=== PATIENT | male | born 1945 | race Caucasian/White ===

== ENCOUNTER 2017-05-10 15:25 | Emergency (ER) | payer MEDICARE, BC ==
[2017-05-10 16:14] LABS: Bilirubin Negative (Negative); Blood, Urine Large (Negative); Glucose, Urine (Dipstick) Negative (Negative); Ketone, Urine Negative (Negative); Nitrite Negative (Negative); Protein, Urine (Dipstick) Negative (Neg-Trace); Urobilinogen 0.2 mg/dL (0.2-1.0)
[2017-05-10 16:17] LABS: Bacteria/HPF None Seen HPF (None Seen); Hyaline Casts/LPF 4-6 HYALINE CAST LPF (0-3 Hyaline); RBC/HPF 21-50 HPF (0-3); Squamous Epithelial 0-3 HPF (0-3)
[2017-05-10 16:30] LABS: Yeast-All Forms None Seen HPF (None Seen)
[2017-05-10 16:39] LABS: #Lymphocytes 1.4 thou/uL (1.20-3.40); #Monocytes 0.5 thou/uL (0.11-0.59); #Neutrophils 7.5 thou/uL (1.40-6.50); %Basophils 0.2 % (0.0-1.0); %Eosinophils 0.4 % (0.0-10.0); %Lymphocytes 14.3 % (21.0-51.0); %Monocytes 5.7 % (0.0-10.0); Hematocrit 44.1 % (42.0-52.0); Mean Platelet Volume 8.2 fL (7.4-10.4); Red Blood Cell (RBC) Count 4.53 mill/uL (4.70-6.10); White Blood Cell (WBC) Count 9.4 thou/uL (4.8-10.8)
[2017-05-10 16:50] LABS: ALT (SGPT) 60 U/L (8-55); AST (SGOT) 52 U/L (5-34); Alkaline Phosphatase 56 U/L (40-150); Anion Gap 12 mmol/L (10-20); BUN (Urea Nitrogen) 17 mg/dL (8.4-25.7); Bilirubin, Total 1.2 mg/dL (0.2-1.2); Calc. Creatinine Clearance 0 mL/min (70-130); Calcium 10.1 mg/dL (7.8-10.44); Carbon Dioxide 28 mmol/L (23-31); Chloride 100 mmol/L (98-107); Estimated GFR-MDRD 75; Globulin 3.6 g/dL (2.4-3.5); Protein, Total 8.3 g/dL (5.8-8.1)
--- NOTE | 2017-05-10 19:19 | CT ---
ABDOMEN AND PELVIS CT NONCONTRAST: History: Left flank pain. Comparison: None. FINDINGS: There is mild volume loss at the imaged lung bases. There are punctate nonobstructing right renal steve culi. There is a mild to moderately obstructing left mid ureteral calculus measuring 4 mm in diameter . A mild degree of surrounding left periureteral fat stranding is present. There are scattered coloni c diverticula. Low attenuation of the hepatic parenchyma indicates hepatic steatosis. There is modera te distention of the gallbladder. There is a punctate calcification within the perihepatic fat of the anterior right abdomen. Mild nonspecific central mesenteric fat stranding is present with interspers ed lymph nodes which are not pathologically enlarged. These findings are nonspecific. There is modera te distention of the unopacified urinary bladder. Mild prominence of the prostate gland which contain s calcifications. No free air. Diffuse vascular disease is present. Regional skeletal structures demo nstrate degenerative change. There is focal ectasia involving portions of the abdominal aorta. IMPRESSION: 1. Mild to moderate obstruction of the left urinary collection system as a result of a 4 mm mid left ureteral calculus. 2. Nonobstructing multifocal right nephrolithiasis. 3. Prostate enlargement with prostate calcification. Correlate clinically. POS: [facility]
== END 2017-05-10 19:54 | disposition home or self-care (01) ==
LOC: ERS 15:25
DX: N20.2 Calculus of kidney with calculus of ureter (principal); E78.5 Hyperlipidemia, unspecified; Z79.82 Long term (current) use of aspirin; Z79.899 Other long term (current) drug therapy
CPT/HCPCS: 36415; 74176; 80053; 81003; 81015; 85025; 87086

== ENCOUNTER 2017-05-23 11:36 | Outpatient (CLI) | payer MEDICARE, BC ==
--- NOTE | 2017-05-23 12:42 | RAD ---
KUB: Comparison: CT abdomen/pelvis 05-10-17. History: Nephrolithiasis. FINDINGS: Single view of the abdomen shows a nonspecific, nonobstructed bowel gas pattern. There are calcificat ions projecting over the right renal shadow which likely represent kidney stones. No calcifications a re seen in the left renal shadow or along the course of the ureters. Vascular calcifications are seen . IMPRESSION: Right nephrolithiasis. POS: [facility]
== END 2017-05-23 11:37 | disposition home or self-care (01) ==
LOC: RAD 11:36
PROVIDERS: ATTEND Urology
DX: N20.0 Calculus of kidney (principal)
CPT/HCPCS: 74000

== ENCOUNTER 2017-06-19 11:58 | Outpatient (CLI) | payer MEDICARE, BC ==
--- NOTE | 2017-06-19 13:25 | RAD ---
KUB: Date: 06-19-17 Comparison: 05-23-17 History: Nephrolithiasis. FINDINGS: Numerous calcifications are seen in the right upper quadrant, stable, suggesting numerous right renal stones. These calcifications measure up to 1.1 cm. No calcifications are seen in the left upper quad rant. There are numerous calcifications within the pelvis suggesting phleboliths. It is impossible to exclu de distal ureteral stone on the basis of this exam. As clinically warranted, CT examination is advise d. IMPRESSION: Multiple prominent right renal stones. Numerous pelvic calcifications, likely representing phlebolith s. If there is clinical concern for obstructive uropathy, CT advised. POS: [facility]
== END 2017-06-19 11:59 | disposition home or self-care (01) ==
LOC: RAD 11:58
PROVIDERS: ATTEND Urology
DX: N20.0 Calculus of kidney (principal)
CPT/HCPCS: 74018

== ENCOUNTER 2017-06-28 12:27 | Outpatient (CLI) | payer MEDICARE, BC ==
--- NOTE | 2017-06-28 13:22 | ULT ---
RENAL ULTRASOUND: INDICATION: Urolithiasis. FINDINGS: The demonstrated right renal length is slightly greater than 10 cm and left renal length is slightly greater than 12 cm. There is no hydronephrosis identified, bilaterally. There is a focus of increas ed echogenicity without significant shadowing at the mid right kidney. This could either relate to c alculus or renal sinus fat. The urinary bladder is mildly distended with slight wall prominence. Th ere is an enlarged lobular prostate which impresses upon the urinary bladder. IMPRESSION: 1. No overt hydronephrosis. 2. Prostatomegaly. 3. Small focus of increased echogenicity of the right kidney without shadowing. The patient has pre viously diagnosed nephrolithiasis on the CT exam of April 2017 and, therefore, this could relate t o nonshadowing nephrolithiasis or, alternatively, increased echogenicity related to renal sinus fat. POS: [facility]
== END 2017-06-28 12:28 | disposition home or self-care (01) ==
LOC: ULT 12:27
PROVIDERS: ATTEND Urology
DX: N20.2 Calculus of kidney with calculus of ureter (principal); N40.0 Benign prostatic hyperplasia without lower urinary tract symptoms; N28.89 Other specified disorders of kidney and ureter
CPT/HCPCS: 76770

== ENCOUNTER 2017-09-27 19:51 | Emergency (ER) | payer MEDICARE, BC ==
[2017-09-27 20:50] LABS: ALT (SGPT) 44 U/L (8-55); AST (SGOT) 42 U/L (5-34); Albumin 4.3 g/dL (3.4-4.8); Alkaline Phosphatase 76 U/L (40-150); Anion Gap 14 mmol/L (10-20); BUN (Urea Nitrogen) 18 mg/dL (8.4-25.7); Bilirubin, Total 1.2 mg/dL (0.2-1.2); Calc. Creatinine Clearance 0 mL/min (70-130); Calcium 9.5 mg/dL (7.8-10.44); Carbon Dioxide 23 mmol/L (23-31); Chloride 103 mmol/L (98-107); Estimated GFR-MDRD 84; Globulin 2.9 g/dL (2.4-3.5); Glucose 106 mg/dL (83-110); Lipase 47 U/L (8-78); Protein, Total 7.2 g/dL (5.8-8.1); Sodium 136 mmol/L (136-145)
[2017-09-27 21:04] LABS: Bilirubin Negative (Negative); Blood, Urine Large (Negative); Clarity CLOUDY (Clear); Glucose, Urine (Dipstick) Negative (Negative); Leukocyte Negative (Negative); Nitrite Negative (Negative); Protein, Urine (Dipstick) Trace mg/dL (Neg-Trace); Specific Gravity, Urine 1.016 (1.002-1.036); pH, Urine 7.5 (5.0-9.0)
[2017-09-27 21:05] LABS: Bacteria/HPF None Seen HPF (None Seen); Hyaline Casts/LPF 4-6 HYALINE CAST LPF (0-3 Hyaline); Pathc Cast-AUWi Flag 0.43 (0-2.49); RBC/HPF GREATER THAN 50-TNTC HPF (0-3); WBC/HPF 0-3 HPF (0-3)
[2017-09-27 21:12] LABS: Renal Epithelial 0-3 HPF (0-3)
[2017-09-27 21:20] LABS: #Eosinphils 0.1 thou/uL (0.0-0.7); #Lymphocytes 1.6 thou/uL (1.20-3.40); #Monocytes 0.5 thou/uL (0.11-0.59); #Neutrophils 4.2 thou/uL (1.40-6.50); %Basophils 0.1 % (0.0-1.0); %Eosinophils 1.7 % (0.0-10.0); %Lymphocytes 24.3 % (21.0-51.0); %Neutrophils 65.9 % (42.0-75.0); Hemoglobin 14.5 g/dL (14.0-18.0); Mean Corpuscular HGB CONC 36.1 g/dL (32.0-36.0); Mean Corpuscular Hemoglobin 33.6 pg (27.0-31.0); Mean Corpuscular Volume 93.1 fl (80.0-94.0); Mean Platelet Volume 8.4 fL (7.4-10.4); Platelet Count 116 thou/uL (130-400); Red Blood Cell (RBC) Count 4.32 mill/uL (4.70-6.10); White Blood Cell (WBC) Count 6.4 thou/uL (4.8-10.8)
--- NOTE | 2017-09-27 22:32 | CT ---
CT OF THE ABDOMEN AND PELVIS WITHOUT CONTRAST: 09/27/17 INDICATION: Right lower quadrant abdominal pain. COMPARISON: Prior exam dated 05/10/17. FINDINGS: There are multiple nonobstructing calculi again seen involving the right kidney. The largest is seen within the mid to superior pole of the right kidney measuring 1 cm. There is mild right hydronephrosi s and hydroureter. There is a 3.5 mm ureteral calculus seen within the right ureter at the level of the pelvic brim. There is a 6 mm stone within the posterior aspect of the bladder consistent with a recently passed st one. There are multiple small phleboliths within the lower pelvis. There is prostate enlargement measuring 6 cm. There is scattered colonic diverticula. The unopacified liver, pancreas, adrenal glands and spleen ap pear within normal limits. There are moderate calcifications noted involving the abdominal and pelvic vasculature. There is norm al appendix in the right lower quadrant of the abdomen. There are scattered degenerative and osteoarthritic change. IMPRESSION: 1. 6 mm stone within the posterior aspect of the bladder. There is an additional 3.5 mm stone wi thin the distal right ureter at the level of the pelvic brim. There is mild right hydronephrosis. 2. Right nephrolithiasis. 3. Prostate enlargement. 4. Colonic diverticulosis. POS: [facility]
== END 2017-09-27 22:45 | disposition home or self-care (01) ==
LOC: ERS 19:51
DX: N13.2 Hydronephrosis with renal and ureteral calculous obstruction (principal); N40.0 Benign prostatic hyperplasia without lower urinary tract symptoms; E78.5 Hyperlipidemia, unspecified; Z79.899 Other long term (current) drug therapy
CPT/HCPCS: 36415; 74176; 80053; 81003; 81015; 83690; 85025

== ENCOUNTER 2019-06-20 13:55 | Emergency (ER) | payer MEDICARE, BC ==
--- NOTE | 2019-06-20 14:45 | ULT ---
VENOUS DOPPLER ULTRASOUND OF THE RIGHT LOWER EXTREMITY: HISTORY: Right lower extremity pain and edema. TECHNIQUE: Moreno-scale ultrasound with color-flow and spectral Doppler imaging of the deep venous system of the r ight lower extremity was performed. FINDINGS: There is good flow, compression and augmentation noted in the right common femoral, femoral, deep fem oral, popliteal, posterior tibial and greater saphenous veins. IMPRESSION: No evidence of deep venous thrombosis in the right lower extremity. POS: [facility]
--- NOTE | 2019-06-20 15:47 | RAD ---
4 views right knee: 06/20/2019 COMPARISON: None HISTORY: Right knee pain FINDINGS: Nonspecific knee joint effusion. No acute fracture or dislocation. There is atherosclerotic calcification of the imaged thigh and calf. Mild medial and lateral compartment narrowing. Mild patellofemoral joint space narrowing. IMPRESSION: Mild degenerative change. Small nonspecific knee joint effusion which could be inflammato ry/infectious or reactive in nature.
== END 2019-06-20 16:50 | disposition home or self-care (01) ==
LOC: ERS 13:55
DX: M79.89 Other specified soft tissue disorders (principal); E78.5 Hyperlipidemia, unspecified; E78.00 Pure hypercholesterolemia, unspecified; G61.0 Guillain-Barre syndrome; Z87.442 Personal history of urinary calculi

== ENCOUNTER 2020-03-17 11:26 | Emergency (ER) | payer MEDICARE, BC ==
--- NOTE | 2020-03-17 13:01 | RAD ---
PORTABLE CHEST 1 VIEW: Date: 03/17/2020 Time: 1243 hours HISTORY: Abdominal cramping, vomiting. FINDINGS: The heart size is normal. The aorta is tortuous. The lungs are well expanded with lobar consolidation , pneumothoraces, or pleural effusions. There are postop changes of right rotator cuff repair. IMPRESSION: No radiographic evidence of acute cardiopulmonary process. POS: [facility]
[2020-03-17 13:37] LABS: #Lymphocytes 0.9 thou/uL (1.20-3.40); #Monocytes 0.5 thou/uL (0.11-0.59); #Neutrophils 6.8 thou/uL (1.40-6.50); %Basophils 0.5 % (0.0-1.0); %Eosinophils 0.2 % (0.0-10.0); %Lymphocytes 11.3 % (21.0-51.0); %Monocytes 5.7 % (0.0-10.0); %Neutrophils 82.3 % (42.0-75.0); Hemoglobin 15.7 g/dL (14.0-18.0); Mean Corpuscular HGB CONC 33.9 g/dL (32.0-36.0); Mean Corpuscular Hemoglobin 32.2 pg (27.0-31.0); Mean Corpuscular Volume 95.1 fL (78.0-98.0); Mean Platelet Volume 8.8 fL (7.4-10.4); Platelet Count 142 thou/uL (130-400); RBC Distribution Width 12.2 % (11.5-14.5); Red Blood Cell (RBC) Count 4.86 mill/uL (4.70-6.10); White Blood Cell (WBC) Count 8.2 thou/uL (4.8-10.8)
[2020-03-17 14:06] LABS: ALT (SGPT) 27 U/L (8-55); AST (SGOT) 34 U/L (5-34); Albumin 4.4 g/dL (3.4-4.8); Alkaline Phosphatase 82 U/L (40-110); Anion Gap 14 mmol/L (10-20); BUN (Urea Nitrogen) 15 mg/dL (8.4-25.7); Calc. Creatinine Clearance 0 mL/min (70-130); Calcium 9.7 mg/dL (7.8-10.44); Carbon Dioxide 24 mmol/L (23-31); Chloride 105 mmol/L (98-107); Estimated GFR-MDRD 81; Globulin 3.5 g/dL (2.4-3.5); Glucose 118 mg/dL (83-110); Lipase 41 U/L (8-78); Potassium 4.3 mmol/L (3.5-5.1); Protein, Total 7.9 g/dL (5.8-8.1); Sodium 139 mmol/L (136-145)
[2020-03-17] MEDS ORDERED: Ondansetron PF 4 MG/2 ML Vial ONE (15:15)
[2020-03-17] MEDS ORDERED: Morphine 4 MG/ML VIAL ONE (15:15)
--- NOTE | 2020-03-17 15:52 | ULT ---
ULTRASOUND GALLBLADDER RIGHT UPPER QUADRANT: Date: 03/17/2020 HISTORY: Abdominal pain. COMPARISON: Reference made to CT dated 09/27/2017 of the abdomen and pelvis. FINDINGS: Real-time Moreno scale and color evaluation was performed of the abdomen right upper quadrant. Visualized portions of the aorta and pancreas are unremarkable. The IVC is distended. No hepatic mass . No gallbladder wall thickening or pericholecystic fluid. Portal vein is patent with antegrade flow. Common bile duct measures 3.0 mm, normal. Mild increased hepatic echotexture with the liver measuring 14.9 cm in length. There is mild to moderate right hydronephrosis. No obstructing stone is appreciat ed within the renal pelvis. A few echogenic foci are in the superior pole of the right kidney. IMPRESSION: 1. Moderate right hydronephrosis, relatively similar to the 09/27/2017 exam of the abdomen and pelvi s. 2. No cholelithiasis or cholecystitis. 3. Mild distended inferior vena cava can be seen with increased right heart pressure. POS: [facility]
[2020-03-17 17:02] LABS: Bacteria/HPF None Seen HPF (None Seen); Bilirubin Negative (Negative); Blood, Urine 1+ (Negative); Clarity Clear (Clear); Glucose, Urine (Dipstick) Normal (Negative); Ketone, Urine Negative (Negative); Leukocyte Negative Leu/uL (Negative); Nitrite Negative (Negative); Protein, Urine (Dipstick) Negative (Neg-Trace); RBC/HPF 21-50 HPF (0-3); Specific Gravity, Urine 1.018 (1.002-1.036); Squamous Epithelial 0-3 HPF (0-3); Urobilinogen Normal mg/dL (Less than 2); pH, Urine 6.5 (5.0-9.0)
--- NOTE | 2020-03-27 11:01 | EKG ---
Test Reason : ER Blood Pressure : / mmHG Vent. Rate : 057 BPM Atrial Rate : 057 BPM P-R Int : 238 ms QRS Dur : 088 ms QT Int : 424 ms P-R-T Axes : -18 012 -12 degrees QTc Int : 412 ms Sinus bradycardia with 1st degree A-V block Inferior infarct , age undetermined Abnormal ECG Confirmed by SANTHOSH CISNEROS DO ([id number]), news video editor MARIE BAILEY ([id number]) on 03/27/2020 11:00:57 AM Referred By: Confirmed By:SANTHOSH CISNEROS DO
== END 2020-03-17 16:56 | disposition home or self-care (01) ==
LOC: ERS 11:26
DX: R10.11 Right upper quadrant pain (principal); E78.5 Hyperlipidemia, unspecified; E78.00 Pure hypercholesterolemia, unspecified; N40.0 Benign prostatic hyperplasia without lower urinary tract symptoms; Z79.82 Long term (current) use of aspirin; Z79.899 Other long term (current) drug therapy
CPT/HCPCS: 36415; 71045; 76705; 80053; 81003; 81015; 83690; 85025; 93005; 96374; 96375; J2270; J2405

== ENCOUNTER 2021-07-16 12:13 | Inpatient (IN) | payer MEDICARE, BC ==
[2021-07-16] MEDS ORDERED: Heparin 1,000 UNITS/ML VIAL ONE (13:57)
[2021-07-16] MEDS ORDERED: Senokot S 8.6-50 MG TAB PO PRN (15:25)
[2021-07-16] MEDS ORDERED: Ondansetron ODT 4 MG TAB PO PRN (15:25)
[2021-07-16] MEDS ORDERED: Ondansetron PF 4 MG/2 ML Vial IVP PRN (15:25)
[2021-07-16] MEDS ORDERED: Vancomycin 1 GM in Premix Bag 1 BAG IVPB SCH (15:30)
[2021-07-16 15:49] LABS: #Lymphocytes 1.8 thou/uL (1.20-3.40); #Monocytes 1.1 thou/uL (0.11-0.59); #Neutrophils 5.5 thou/uL (1.40-6.50); %Basophils 0.2 % (0.0-1.0); %Eosinophils 0.2 % (0.0-10.0); %Lymphocytes 21.1 % (21.0-51.0); %Monocytes 13.5 % (0.0-10.0); Hemoglobin 13.6 g/dL (14.0-18.0); Mean Corpuscular HGB CONC 34.3 g/dL (32.0-36.0); Mean Corpuscular Hemoglobin 32.6 pg (27.0-31.0); Mean Platelet Volume 7.5 fL (7.4-10.4); Platelet Count 158 thou/uL (130-400); Red Blood Cell (RBC) Count 4.18 mill/uL (4.70-6.10); White Blood Cell (WBC) Count 8.5 thou/uL (4.8-10.8)
[2021-07-16] MEDS ORDERED: VANCOMYCIN 2 GRAM/400 ML BAG 2 GM in Premix Bag 1 BAG IVPB SCH ×2 (16:00→19:00)
[2021-07-16] MEDS ORDERED: Cefepime 1 GM in Sodium Chloride 0.9% 100 ML IVPB SCH (16:00)
[2021-07-16] MEDS ORDERED: VANCOMYCIN 1.75 GM/350 ML BAG 1.75 GM in Premix Bag 1 BAG IVPB SCH (16:00)
[2021-07-16 16:08] LABS: ALT (SGPT) 31 U/L (8-55); AST (SGOT) 31 U/L (5-34); Albumin 3.8 g/dL (3.4-4.8); Alkaline Phosphatase 88 U/L (40-110); Anion Gap 14 mmol/L (10-20); BUN (Urea Nitrogen) 18 mg/dL (8.4-25.7); Bilirubin, Total 1.3 mg/dL (0.2-1.2); CRP (Inflammatory) 9.51 mg/dL (= or < 0.5); Calc. Creatinine Clearance 87 mL/min (70-130); Calcium 9.4 mg/dL (7.8-10.44); Carbon Dioxide 23 mmol/L (23-31); Chloride 105 mmol/L (98-107); Globulin 3.8 g/dL (2.4-3.5); Glucose 97 mg/dL (83-110); Potassium 4.2 mmol/L (3.5-5.1); Protein, Total 7.6 g/dL (5.8-8.1); Sodium 138 mmol/L (136-145)
[2021-07-16] MEDS: HYDROcodone/Acetaminophen 7.5/325 mg Tablet PO PRN (20:15)
[2021-07-16 21:10] VITALS: BMI 24.4
[2021-07-16 21:22] LABS: SARS-CoV-2 NAA Rapid Test Not Detected (NotDetected)
[2021-07-16] MEDS: Acetaminophen 325 MG TAB PO PRN (22:33)
[2021-07-16] MEDS: Cefepime 1 GM in Sodium Chloride 0.9% 100 ML IVPB SCH (22:34)
[2021-07-17] MEDS: HYDROcodone/Acetaminophen 7.5/325 mg Tablet PO PRN ×4 (00:59→19:57)
[2021-07-17 05:16] LABS: #Lymphocytes 2.1 thou/uL (1.20-3.40); #Monocytes 1.3 thou/uL (0.11-0.59); #Neutrophils 5.8 thou/uL (1.40-6.50); %Basophils 0.1 % (0.0-1.0); %Eosinophils 0.4 % (0.0-10.0); %Lymphocytes 22.3 % (21.0-51.0); %Monocytes 14.4 % (0.0-10.0); %Neutrophils 62.9 % (42.0-75.0); Hemoglobin 12.3 g/dL (14.0-18.0); Mean Corpuscular HGB CONC 34.7 g/dL (32.0-36.0); Mean Corpuscular Hemoglobin 33.3 pg (27.0-31.0); Mean Platelet Volume 7.9 fL (7.4-10.4); Platelet Count 155 thou/uL (130-400); RBC Distribution Width 11.8 % (11.5-14.5); White Blood Cell (WBC) Count 9.2 thou/uL (4.8-10.8)
[2021-07-17] MEDS: Levothyroxine Sodium 25 MCG TAB PO SCH (05:20)
[2021-07-17 05:39] LABS: Anion Gap 11 mmol/L (10-20); BUN (Urea Nitrogen) 14 mg/dL (8.4-25.7); Calc. Creatinine Clearance 98 mL/min (70-130); Calcium 8.7 mg/dL (7.8-10.44); Carbon Dioxide 24 mmol/L (23-31); Chloride 102 mmol/L (98-107); Glucose 99 mg/dL (83-110); Potassium 3.9 mmol/L (3.5-5.1); Sodium 133 mmol/L (136-145)
[2021-07-17] MEDS: Enoxaparin Sodium 40 MG/0.4 ML SYRINGE SC SCH (07:46)
[2021-07-17] MEDS ORDERED: Fentanyl 100 MCG/2 ML VIAL ONE ×2 (09:23→10:34)
[2021-07-17] MEDS ORDERED: Neomycin-Polymyxin 1 ML AMP ONE (09:26)
[2021-07-17] MEDS ORDERED: PHENYLEPHRINE-NS 100 MCG/ML 10 ML SYRINGE ONE (09:42)
[2021-07-17] MEDS ORDERED: Dexamethasone 20 MG/5 ML VIAL ONE (09:42)
[2021-07-17] MEDS ORDERED: Lidocaine 1% PF 5 ML VIAL ONE (09:42)
[2021-07-17] MEDS ORDERED: PROPOFOL 200 MG/20 ML VIAL ONE (09:42)
[2021-07-17] MEDS ORDERED: Ondansetron PF 4 MG/2 ML Vial ONE (09:42)
[2021-07-17] MEDS ORDERED: Promethazine HCl 25 MG/ML VIAL IM PRN (10:03)
[2021-07-17] MEDS ORDERED: Promethazine HCl 25 MG/ML VIAL IVPB PRN (10:03)
[2021-07-17] MEDS ORDERED: Ondansetron HCl/PF 4 MG/2 ML Vial IVP PRN (10:03)
[2021-07-17] MEDS: Cefepime 1 GM in Sodium Chloride 0.9% 100 ML IVPB SCH ×2 (12:47→22:09)
[2021-07-17] MEDS: Rosuvastatin 10 MG TAB PO SCH (12:48)
[2021-07-17] MEDS: Finasteride 5 MG TAB PO SCH (12:48)
[2021-07-17] MEDS: Tamsulosin HCl 0.4 MG CAP PO SCH (12:48)
[2021-07-17] MEDS: Acetaminophen 325 MG TAB PO PRN ×2 (12:52→19:56)
[2021-07-17] MEDS ORDERED: VANCOMYCIN 1.75 GM/350 ML BAG 1.75 GM in Premix Bag 1 BAG IVPB SCH (19:00)
[2021-07-18] MEDS: Acetaminophen 325 MG TAB PO PRN ×4 (01:02→20:16)
[2021-07-18] MEDS: HYDROcodone/Acetaminophen 7.5/325 mg Tablet PO PRN ×4 (01:02→20:16)
[2021-07-18] MEDS: Levothyroxine Sodium 25 MCG TAB PO SCH (05:15)
[2021-07-18] MEDS: Enoxaparin Sodium 40 MG/0.4 ML SYRINGE SC SCH (08:21)
[2021-07-18] MEDS: Finasteride 5 MG TAB PO SCH (08:22)
[2021-07-18] MEDS: Tamsulosin HCl 0.4 MG CAP PO SCH (08:22)
[2021-07-18] MEDS: Rosuvastatin 10 MG TAB PO SCH (08:22)
[2021-07-18] MEDS: Cefepime 1 GM in Sodium Chloride 0.9% 100 ML IVPB SCH (10:13)
[2021-07-18] MEDS: AMPicillin 2 GM in Sodium Chloride 0.9% 100 ML IVPB SCH ×2 (18:35→23:42)
[2021-07-18 19:32] LABS: Vancomycin, Trough 5.9 ug/mL
[2021-07-18] MEDS: cefTRIAXone\\ROCEPHIN 2 GM in Sodium Chloride 0.9% 100 ML IVPB SCH (20:17)
[2021-07-19] MEDS: Acetaminophen 325 MG TAB PO PRN (01:30)
[2021-07-19] MEDS: HYDROcodone/Acetaminophen 7.5/325 mg Tablet PO PRN ×4 (01:30→22:03)
[2021-07-19] MEDS: AMPicillin 2 GM in Sodium Chloride 0.9% 100 ML IVPB SCH ×2 (05:27→11:57)
[2021-07-19] MEDS: Levothyroxine Sodium 25 MCG TAB PO SCH (05:27)
[2021-07-19] MEDS: Enoxaparin Sodium 40 MG/0.4 ML SYRINGE SC SCH (08:24)
[2021-07-19] MEDS: Rosuvastatin 10 MG TAB PO SCH (08:24)
[2021-07-19] MEDS: Finasteride 5 MG TAB PO SCH (08:24)
[2021-07-19] MEDS: Tamsulosin HCl 0.4 MG CAP PO SCH (08:24)
[2021-07-19] MEDS: Ampicillin 2 GM in Sodium Chloride 0.9% 100 ML IVPB SCH ×2 (17:44→23:18)
[2021-07-19] MEDS: cefTRIAXone\\ROCEPHIN 2 GM in Sodium Chloride 0.9% 100 ML IVPB SCH (21:21)
[2021-07-20] MEDS: HYDROcodone/Acetaminophen 7.5/325 mg Tablet PO PRN ×2 (02:02→06:16)
[2021-07-20] MEDS: Levothyroxine Sodium 25 MCG TAB PO SCH (06:12)
[2021-07-20] MEDS: Ampicillin 2 GM in Sodium Chloride 0.9% 100 ML IVPB SCH ×2 (06:12→12:29)
[2021-07-20] MEDS: Rosuvastatin 10 MG TAB PO SCH (08:17)
[2021-07-20] MEDS: Tamsulosin HCl 0.4 MG CAP PO SCH (08:17)
[2021-07-20] MEDS: Finasteride 5 MG TAB PO SCH (08:17)
[2021-07-20] MEDS: Enoxaparin Sodium 40 MG/0.4 ML SYRINGE SC SCH (08:18)
[2021-07-20 15:46] VITALS: BP 153/89; TEMP 98.8
== END 2021-07-20 16:45 | disposition home health service (06) | DRG 857 ==
LOC: SURG B 12:13
PROVIDERS: ADMIT Internal Medicine; ATTEND Internal Medicine
PROC: 0S9G0ZX Drainage of Left Ankle Joint, Open Approach, Diagnostic (ICD-10-PCS; principal; 2021-07-17)
PROC: 0SBG0ZZ Excision of Left Ankle Joint, Open Approach (ICD-10-PCS; 2021-07-17)
PROC: 02HV33Z Insertion of Infusion Device into Superior Vena Cava, Percutaneous Approach (ICD-10-PCS; 2021-07-18)
PROC: B5181ZA Fluoroscopy of Superior Vena Cava using Low Osmolar Contrast, Guidance (ICD-10-PCS; 2021-07-18)
PROC: B548ZZA Ultrasonography of Superior Vena Cava, Guidance (ICD-10-PCS; 2021-07-18)
DX: T80.29XA Infection following other infusion, transfusion and therapeutic injection, initial encounter (principal); M00.872 Arthritis due to other bacteria, left ankle and foot; L03.116 Cellulitis of left lower limb; B95.2 Enterococcus as the cause of diseases classified elsewhere; Z20.822 Contact with and (suspected) exposure to COVID-19; E03.9 Hypothyroidism, unspecified; E78.5 Hyperlipidemia, unspecified; M19.172 Post-traumatic osteoarthritis, left ankle and foot; N40.0 Benign prostatic hyperplasia without lower urinary tract symptoms; G89.29 Other chronic pain; Y84.8 Other medical procedures as the cause of abnormal reaction of the patient, or of later complication, without mention of misadventure at the time of the procedure; Z79.890 Hormone replacement therapy; Z87.442 Personal history of urinary calculi; Z98.890 Other specified postprocedural states; Z79.899 Other long term (current) drug therapy
CPT/HCPCS: 36415; 36569; 80048; 80053; 80202; 85025; 85652; 86140; 87070; 87205; C1751; J0290; J0692; J0696; J1100; J1644; J1650; J2405; J2704; J3010; J3370; J3490; U0002